=== PATIENT | female | born 1935 | race Caucasian/White ===

== ENCOUNTER 2016-12-21 13:43 | Inpatient (IN) ==
--- NOTE | 2016-12-21 14:31 | Emergency Department Note ---
Disposition Clinical Impression: Renal cell carcinoma of right kidney, Ureteral obstruction, right, Hematuria Anemia Qualifiers: Anemia type: iron deficiency Iron deficiency anemia type: chronic blood loss Qualified Code(s): D50.0 - Iron deficiency anemia secondary to blood loss ( chronic) Disposition: Admitted As Inpatient Condition: Fair Time of Disposition: 15:32 General Adult HPI - General Chief complaint: ED Recheck/Abnormal Lab/Rx Stated complaint: Admission Dr.Steven Miguel Time Seen by Provider: 12/21/16 14:24 Source: patient Limitations: no limitations - History of Present Illness HPI Narrative: Patient is an 81-year-old female with past medical history significant for diabetes, HTN, history of breast cancer who presents with abdominal pain and hematuria with passage of clot in the urine. He should was recently seen by Dr. Miguel, urologist, he sent the patient to the ED for further evaluation. Patient recently had a CT scan performed on 12/19/2016 which demonstrated a large mass arising from the upper pole right kidney measuring 7.8 meters in diameter. Blood is identified in the renal collecting system and ureter on the right, with distention of the right ureter. Patient states that she had inability to urinate 2 days ago, then passed a large finger-sized clot, followed by a large "gush" of urine. Patient states that she is had chronic problems urinating in the past few days. She states that she has "dribbling" with increased frequency of urination. When she tries to urinate she sometimes cannot get anything out. Patient does complain of right lower quadrant abdominal pain. Pain is a 0 out of 10 at rest. However, right lower quadrant is extremely tender during any type of movement. Patient does admit to fever of 101, night sweats, 20 pound weight loss since June, decreased appetite. She also admits nausea and nonbloody vomiting as well as constipation. She denies chest pain, shortness of breath, diarrhea, hematochezia, melena Pain Scale: 0 - Related Data Home Medications Medication Instructions Recorded Confirmed Atenolol [Tenormin] 50 mg PO DAILY 12/21/16 12/21/16 Cetirizine HCl [Cetirizine HCl] 10 mg PO DAILY 12/21/16 12/21/16 Fenofibrate Nanocrystallized 160 mg PO DAILY 12/21/16 12/21/16 [Triglide] Fluticasone Propionate Nasal 50 mcg NS DAILY 12/21/16 12/21/16 [Flonase] Losartan/Hydrochlorothiazide 1 each PO DAILY 12/21/16 12/21/16 [Hyzaar 100-25 Tablet] Potassium Chloride [K-Tab ER] 20 meq PO DAILY 12/21/16 12/21/16 Rosuvastatin Calcium [Rosuvastatin 20 mg PO HS 12/21/16 12/21/16 Calcium] Allergies Allergy/AdvReac Type Severity Reaction Status Date / Time hydrochlorothiazide Allergy See Verified 12/21/16 13:47 [From Maxzide] Comments Triamterene [From Maxzide] Allergy See Verified 12/21/16 13:47 Comments All systems ED: reviewed and negative except as stated. Constitutional: Reports: as per HPI Eyes: Reports: as per HPI ENT ED: Reports: as per HPI Cardiovascular: Reports: as per HPI Respiratory: Reports: as per HPI Gastrointestinal: Reports: as per HPI Genitourinary: Reports: as per HPI Musculoskeletal: Reports: as per HPI Integumentary: Reports: as per HPI Neurological: Reports: as per HPI Psychiatric: Reports: as per HPI Endocrine: Reports: as per HPI Hematological/Lymphatic: Reports: as per HPI Allergic/Immunologic: Reports: as per HPI Past Medical History - Past Medical History Medical history: Reports: cancer, diabetes, hypertension - Social History Smoking Status: Never smoker Alcohol use: Reports: none Drug use: Reports: none Physical Exam - General Limitations: no limitations General appearance: alert, in no apparent distress - Head Head exam: atraumatic, normocephalic, normal inspection - Eye Eye exam: Present: normal appearance, PERRL, EOMI. Absent: scleral icterus, conjunctival injection - ENT ENT exam: normal exam - Neck Neck exam: Present: normal inspection, full ROM, trachea midline, other (A carotid bruit) - Chest Chest inspection: Present: normal inspection, symmetric chest wall rise. Absent : tenderness - Respiratory Respiratory exam: Present: normal lung sounds bilaterally. Absent: respiratory distress, wheezes - Cardiovascular Cardiovascular exam: Present: regular rate, normal rhythm, +S1, +S2. Absent: systolic murmur, diastolic murmur - Abdominal Exam Abdominal exam: Present: soft, tenderness, normal bowel sounds. Absent: distention, guarding, rebound, rigidity Abdominal tenderness: Present: RLQ, severe - Extremities Exam Extremities exam: Present: normal inspection, full ROM, pedal edema (Trace bilateral) - Back Exam Back exam: Present: normal inspection, full ROM - Neurological Exam Neurological exam: Present: alert, oriented X3 - Psychiatric Psychiatric exam: Present: normal affect, normal mood - Skin Skin exam: Present: warm, dry, intact Course - Reevaluation(s) Reevaluation #1: Have contacted the hospitalist, Saima Diaz CNP who except to the patient for admission. Time: 15:30 Vital Signs Temperature 98.1 F 12/21/16 13:47 Pulse Rate 75 12/21/16 13:47 Respiratory Rate 15 12/21/16 13:47 Blood Pressure 112/62 12/21/16 13:47 O2 Sat by Pulse Oximetry 96 12/21/16 13:47 Temperature 98.1 F 12/21/16 21:40 Pulse Rate 73 12/21/16 21:40 Respiratory Rate 24 12/21/16 21:40 Blood Pressure 133/64 12/21/16 21:40 O2 Sat by Pulse Oximetry 93 12/21/16 21:40 Oxygen Delivery Oxygen Delivery Room Air Medical Decision Making - MDM Narrative Medical decision making narrative: Patient presents upon recommendation by Dr. Miguel, urologist. Patient has right renal mass with thrombus to the right renal collecting system and right ureter. Patient has distention of the right ureter evidence on CT scan from [facility] on 12/19/2016. I will obtain CBC, CMP, which are pending at this time. I will proceed with admission for this patient. - Medical Records Medical records reviewed: Yes I reviewed the patient's medical records. - Lab Data Lab results reviewed: Yes I reviewed the patient's lab results. Result diagrams: 12/21/16 15:55 12/21/16 15:55 Lab Results 12/21/16 12/21/16 12/21/16 Range/Units 15:55 15:55 15:55 WBC 6.4 (4.3-11.1) K/mcL RBC 3.41 L (3.82-4.97) M/mcL Hgb 7.8 L (11.5-15.4) g/dL Hct 26.5 L (35.3-44.9) % MCV 77.7 L (83.0-100.0) fL MCH 22.9 L (28.0-33.3) pg MCHC 29.4 L (31.6-35.5) g/dL RDW 15.7 H (11.5-14.5) % Plt Count 558 H (140-400) K/mcL MPV 8.4 L (9.4-12.4) fL Immature Gran % 0.5 (0-4) % Seg Neutrophils % 75.0 % Lymphocytes % 14.8 % Monocytes % 7.8 % Eosinophils % 1.6 % Basophils % 0.3 % Neutrophils # 4.8 (1.6-8.9) K/mcL Lymphocytes # 0.9 (0.6-4.6) K/mcL Monocytes # 0.5 (0.0-1.3) K/mcL Eosinophils # 0.1 (0.0-0.6) K/mcL Basophils # 0.0 (0.0-0.2) K/mcL Sodium 134 L (136-145) mEq/L Potassium 4.0 (3.5-4.5) mEq/L Chloride 97 L (98-109) mEq/L Carbon Dioxide 27 (19-29) mEq/L BUN 23 H (7-20) mg/dL Creatinine 1.33 H (0.57-1.11) mg/dL Est GFR ( Amer) 47 L (> 60) Est GFR (Non-Af Amer) 38 L (> 60) BUN/Creatinine Ratio 17 (6-26) Glucose 86 (70-99) mg/dL Est Mean Plasma Glucose 114 mg/dl Hemoglobin A1c 5.6 ( - 5.6) % Calculated Osmolality 281 (280-300) Calcium 10.8 (8.6-10.8) mg/dL Total Bilirubin 0.3 (0.2-1.2) mg/dL AST 50 H (5-34) Units/L ALT 39 (0-55) Units/L Alkaline Phosphatase 54 (38-126) Units/L Serum Total Protein 6.4 (6.0-8.3) g/dL Albumin 2.2 L (3.5-5.0) g/dL Globulin 4.2 H (2.4-3.5) g/dL Albumin/Globulin Ratio 0.5 L (1.1-2.2) - Radiology Data Radiology results reviewed: Yes I reviewed the patient's radiology results. I have scanned CT abdomen 12/17/16 from [facility] into the patient's medical record.
[2016-12-21 16:04] LABS: Basophils % 0.3 %; Eosinophils # 0.1 K/mcL (0.0-0.6); Eosinophils % 1.6 %; Hematocrit 26.5 % (35.3-44.9); Immature Granulocytes % 0.5 % (0-4); Lymphocytes # 0.9 K/mcL (0.6-4.6); Lymphocytes % 14.8 %; Mean Corpuscular HGB Conc 29.4 g/dL (31.6-35.5); Mean Corpuscular Hemoglobin 22.9 pg (28.0-33.3); Mean Corpuscular Volume 77.7 fL (83.0-100.0); Mean Platelet Volume 8.4 fL (9.4-12.4); Monocytes # 0.5 K/mcL (0.0-1.3); Monocytes % 7.8 %; Neutrophils # 4.8 K/mcL (1.6-8.9); Platelet Count 558 K/mcL (140-400); Red Blood Count 3.41 M/mcL (3.82-4.97); Red Cell Distribution Width 15.7 % (11.5-14.5)
[2016-12-21 16:19] LABS: Albumin 2.2 g/dL (3.5-5.0); Albumin/Globulin Ratio 0.5 (1.1-2.2); Bilirubin,Total 0.3 mg/dL (0.2-1.2); Calcium 10.8 mg/dL (8.6-10.8); Globulin 4.2 g/dL (2.4-3.5); Total Protein 6.4 g/dL (6.0-8.3)
[2016-12-21 16:23] LABS: Hemoglobin 7.8 g/dL (11.5-15.4)
--- NOTE | 2016-12-21 16:28 | Emergency Department Note ---
START Narrative - START START: I examined this patient and my medical decision-making was reviewed with the GLOBAL CTO/PA/Advanced Practice Nurse/Resident Physician. I agree with the documented findings, disposition and treatment plan as described except to the extent set forth below. The patient does have a history of recent diagnosis of renal cancer with what sounds like metastases and lymph node involvement and was sent here by the urologist for admission. She is bright and alert and in no distress in the room. I did speak with the patient and the family. Patient will have further evaluation the hospital. [id number]
[2016-12-21] MEDS ORDERED: Acetaminophen 325 MG TABLET PO PRN (16:46)
[2016-12-21] MEDS ORDERED: Naloxone 0.4 MG/ML INJ IVP PRN (16:46)
[2016-12-21] MEDS ORDERED: Ondansetron ODT 4 MG TAB.RAPDIS SL PRN (16:46)
--- NOTE | 2016-12-21 18:52 | Event Note ---
Date of Encounter: 12/21/16 Time of Encounter: 18:50 81/F Was in [facility] on Sunday. She underwent CT scan of her abdomen where they found renal mass. Patient was seen by urology this morning. Plan: Noted that patient's hemoglobin is 7.2. We will transfuse 2 units PRBC. Urology consult Labs in the morning I examined this patient independently and agree with the findings I examined this patient and my medical decision-making was reviewed with the GLASS CHECKER/PA/Advanced Practice Nurse/Resident Physician. I agree with the documented findings, disposition and treatment plan as described except to the extent set forth below.
--- NOTE | 2016-12-21 19:13 | Urology - Consult Note ---
Date of Encounter: 12/21/16 Time of Encounter: 19:11 - Assessment and Plan (1) Hematuria Current Visit: Yes Status: Acute Assessment and plan: 81-year-old woman with a history of hematuria from a right renal cell carcinoma. We discussed management. Currently she is having intermittent hematuria. She reports that the last time she voided her urine was clear. If she begins to develop pronounced bleeding, we could consider angioembolization of the right kidney. I discussed the risks and benefits associated with that. Post-embolization symptoms typically consist of fevers, chills, and severe flank pain. I recommend proceeding with embolization if there is significant and persistent bleeding. We also discussed a palliative nephrectomy, but that is typically performed in patients with very good performance status. At this time she has had a significant weight loss. I think it may be reasonable to proceed with a more conservative approach. I recommend a referral to medical oncology. (2) Renal cell carcinoma of right kidney Current Visit: Yes Status: Acute Assessment and plan: I recommend a medical oncology consultation and discussion for possible chemotherapy. (3) Ureteral obstruction, right Current Visit: Yes Status: Acute Assessment and plan: There is concern that she has some blood within her renal pelvis and possible obstruction secondary to bleeding. Consideration for a right ureteral stent was given. Placement of stent would not necessarily stop her bleeding, but would minimize flank pain associated with obstruction. She says she is having minimal right flank pain. She is having some right lower quadrant pain. For now, we will see how she does. I will hold off on placement of a stent unless she begins to develop pain which is not adequately controlled. Urology CN:HPI Consult date: 12/21/16 Reason for consult Urology: Gross Hematuria Requesting physician: Saima Diaz History of present illness: 81-year-old woman presents with concern for gross hematuria. She has noted intermittent bleeding for a couple days. She was seen at the [place] emergency department. A CT scan showed concern for a right renal mass with concern for metastatic disease. There was blood clot within the collecting system. She was seen at the [facility] urology office in [place] by Dr. Miguel. He referred her to the emergency department and she was admitted. She is anemic. She currently feels that she is urinating well. She said the last time she voided her urine was clear. She reports some lower quadrant pain on the right side, but denies any flank pain. Past Med Surg Social Fam HX - Past Medical History Medical history: cancer, diabetes, hypertension Psychiatric history: no psych history - Past Surgical History Surgical History: appendectomy - Social History Smoking Status: Never smoker Smokeless Tobacco Status: No Alcohol use: none Drug use: none - Family History Father Age at : 93 Cause of : heart attack Hx Family Cardiac Disorders: Yes Hx Family Respiratory Disorders: No Hx Family Cancer: No Hx Family GI Disorders: No Hx Family Genitourinary Disorders: No Hx Family Endocrine Disorder: Yes Hx Family Musculoskeletal Disorders: No Hx Family Neuromuscular Disorders: Yes Hx Family Neurologic Disorders: No Hx Family HEENT Disorders: No Hx Family Autoimmune Disorders: No Hx Family Reproductive Disorders: No Hx Family Psychosocial Disorders: No Hx Family Medical Disorders: No Mother Living Status: Age at : 86 Cause of : CVA Medications and Allergies Atenolol [Tenormin] 50 mg PO DAILY 12/21/16 [History] Cetirizine HCl [Cetirizine HCl] 10 mg PO DAILY 12/21/16 [History] Fenofibrate Nanocrystallized [Triglide] 160 mg PO DAILY 12/21/16 [History] Fluticasone Propionate Nasal [Flonase] 50 mcg NS DAILY 12/21/16 [History] Losartan/Hydrochlorothiazide [Hyzaar 100-25 Tablet] 1 each PO DAILY 12/21/16 [ History] Potassium Chloride [K-Tab ER] 20 meq PO DAILY 12/21/16 [History] Rosuvastatin Calcium [Rosuvastatin Calcium] 20 mg PO HS 12/21/16 [History] Allergies hydrochlorothiazide [From Maxzide] Allergy (Verified 12/21/16 13:47) See Comments Unsure of reaction. Triamterene [From Maxzide] Allergy (Verified 12/21/16 13:47) See Comments Unsure of reaction. Review of Systems - Constitutional no chills, no fever(s) - EENT Nose, mouth and throat: no dizziness - Cardiovascular no chest pain - Respiratory no dyspnea - Gastrointestinal no nausea, no vomiting - Genitourinary Genitourinary: hematuria, no flank pain - Musculoskeletal no back pain - Integumentary no erythema, no rash - Neurological no weakness - Psychiatric no suicidal ideation - Hematologic/Lymphatic no easy bleeding - Allergic/Immunologic no wheezing Exam Initial Vital Signs Temp Pulse Resp BP Pulse Ox 98.1 F 75 15 112/62 96 12/21/16 13:47 12/21/16 13:47 12/21/16 13:47 12/21/16 13:47 12/21/16 13:47 - General physical appearance Present: well developed, well nourished, no distress - Eyes Absent: icteric - ENT Present: normal nares - Neck Present: trachea midline - Respiratory Present: normal respiratory effort - Cardiovascular Cardiovascular exam IM: RRR - Abdomen Abdomen: Present: soft Urology Results - Labs 12/21/16 15:55 12/21/16 15:55 Abnormal lab results RBC 3.41 M/mcL (3.82-4.97) L 12/21/16 15:55 Hgb 7.8 g/dL (11.5-15.4) L 12/21/16 15:55 Hct 26.5 % (35.3-44.9) L 12/21/16 15:55 MCV 77.7 fL (83.0-100.0) L 12/21/16 15:55 MCH 22.9 pg (28.0-33.3) L 12/21/16 15:55 MCHC 29.4 g/dL (31.6-35.5) L 12/21/16 15:55 RDW 15.7 % (11.5-14.5) H 12/21/16 15:55 Plt Count 558 K/mcL (140-400) H 12/21/16 15:55 MPV 8.4 fL (9.4-12.4) L 12/21/16 15:55 Sodium 134 mEq/L (136-145) L 12/21/16 15:55 Chloride 97 mEq/L (98-109) L 12/21/16 15:55 BUN 23 mg/dL (7-20) H 12/21/16 15:55 Creatinine 1.33 mg/dL (0.57-1.11) H 12/21/16 15:55 Est GFR ( Amer) 47 (> 60) L 12/21/16 15:55 Est GFR (Non-Af Amer) 38 (> 60) L 12/21/16 15:55 AST 50 Units/L (5-34) H 12/21/16 15:55 Albumin 2.2 g/dL (3.5-5.0) L 12/21/16 15:55 Globulin 4.2 g/dL (2.4-3.5) H 12/21/16 15:55 Albumin/Globulin Ratio 0.5 (1.1-2.2) L 12/21/16 15:55 All other labs normal. - Imaging CT scan - abdomen: report reviewed CT scan - pelvis: report reviewed Consult Discharge Plan - Plan Referrals: Nick Olmos MD [Primary Care Provider] -
--- NOTE | 2016-12-21 19:17 | Internal Med History&Physical ---
<Saima Diaz M - Last Filed: 12/21/16 19:50> Date of Encounter: 12/21/16 Time of Encounter: 18:58 Assessment and Plan (1) Hematuria Status: Acute Patient reports large blood clot passed with urine on Sunday, followed by blood tinged urine. Patient reporting she is passing urine easily now and it is yellow. CT from [place] on Sunday shows blood clots in right renal collecting system and right ureter. UA ordered, not yet resulted. IV fluids with 0.9NS at 75mL/hr Urology consulted, spoke with Dr. Lorenzo, who will see patient. (2) Renal cell carcinoma of right kidney Status: Acute Patient with cough, weight loss, poor appetite over last 6 months, now with Abdominal pain and hematuria. CXR ordered by PCP reportedly showed pulmonary lesions consistent with malignancy. CT from [place] on Sunday showed large mas arising from the upper pole of the right kidney measuring up to 7.8cm, which appears to be partially hemorrhagic. There are blood products in the renal collecting system and ureter on the right. Enlarged retrocaval lymph node at the level of the kidney consistent with metastatic disease. Multiple noncalcified nodules in the lung bases possibly related to metastatic disease vs. noncalcified granuloma. Consulted Urology, Dr. Lorenzo to see patient. Plan for MRI to further characterize disease. Plan to consult oncology and/or palliative care for discussion of treatment options and goals of care. (3) Anemia Status: Acute Hgb 7.8/Hct 26.5, with no baseline available for comparison. Patient with hematuria and CBC consistent with chronic blood loss anemia. type and cross Transfuse 2u packed RBCs check H&H Q 6hrs. Qualifiers: Anemia type: iron deficiency Iron deficiency anemia type: chronic blood loss Qualified Code(s): D50.0 - Iron deficiency anemia secondary to blood loss (chronic) (4) Ureteral obstruction, right Status: Acute Secondary to blood products in the right ureter, seen on CT. Urology consulted. (5) Hypertension Status: Acute Hold Losartan/HCTZ due to elevated creatinine and concern for JONATHAN without known creatinine baseline. Continue home dose of atenolol. Qualifiers: Hypertension type: essential hypertension Qualified Code(s): I10 - Essential (primary) hypertension (6) Type 2 diabetes mellitus Status: Acute Patient reports she has "borderline diabetes" and does not take any medications. Blood sugar was 86. Will check Hgb A1c and determine if accuchecks are necessary. Qualifiers: Diabetes mellitus complication status: without complication Diabetes mellitus half-way insulin use: without termite exterminator use Qualified Code(s): E11.9 - Type 2 diabetes mellitus without complications (7) DVT prophylaxis Status: Acute Up to chair BID Sequential compression devices pharmacologic prophylaxis contraindicated in patient with active bleeding. Internal Medicine - H&P: HPI Chief complaint: hematuria Admitted From: Emergency Dept Plans for Post Hospital Care: Home History of present illness: Ms. Aparicio is a 81 year old female with hypertension, diabetes, history of breast cancer status post radiation 14 years ago presents to the emergency department today on the instruction of her urologist Dr. Miguel. Patient reports that she has had a chronic cough since the wintertime her primary care physician ordered a chest x-ray recently which showed lung nodules consistent with metastasis. On Sunday evening she passed a large blood clot when urinating and went to the [facility] emergency department. She had a CT of her abdomen which showed a large mass in the right kidney appearing to be partially hemorrhagic, with blood products in the renal collecting system and right ureter. Patient had follow-up appointment with Dr. Miguel in urology today who instructed her to go to the emergency room for admission. Patient reports she has had a poor appetite, lost 20 pounds in weight over the last 6 months, had occasional nausea, has right lower quadrant pain, abdominal distention. She denies any lightheadedness, dizziness, chest pain, palpitations, shortness of breath, fever, chills, sweats. Evaluation in the emergency department revealed anemia with hemoglobin of 7.8, with no available baseline, white blood cell count was normal at 6.4, platelet count was elevated at 558. Creatinine was elevated 1.33, again without any baseline for comparison. On exam, patient alert and oriented, in no acute distress. Heart has regular rate and rhythm, lungs are clear bilaterally to auscultation. Abdomen is distended and soft, with tenderness the right lower quadrant. Past Med Surg Social Fam HX - Past Medical History Medical history: cancer (breast cancer s/p radiation 2002), diabetes, hypertension Psychiatric history: no psych history - Past Surgical History Surgical History: appendectomy - Social History Smoking Status: Never smoker Smokeless Tobacco Status: No Alcohol use: none Drug use: none - Family History Father Age at : 93 Cause of : heart attack Hx Family Cardiac Disorders: Yes Hx Family Respiratory Disorders: No Hx Family Cancer: No Hx Family GI Disorders: No Hx Family Genitourinary Disorders: No Hx Family Endocrine Disorder: Yes Hx Family Musculoskeletal Disorders: No Hx Family Neuromuscular Disorders: Yes Hx Family Neurologic Disorders: No Hx Family HEENT Disorders: No Hx Family Autoimmune Disorders: No Hx Family Reproductive Disorders: No Hx Family Psychosocial Disorders: No Hx Family Medical Disorders: No Mother Living Status: Age at : 86 Cause of : CVA Internal Medicine - H&P: Meds Atenolol [Tenormin] 50 mg PO DAILY 12/21/16 [History] Cetirizine HCl 10 mg PO DAILY 12/21/16 [History] Fenofibrate Nanocrystallized [Triglide] 160 mg PO DAILY 12/21/16 [History] Fluticasone Propionate Nasal [Flonase] 50 mcg NS DAILY 12/21/16 [History] Losartan/Hydrochlorothiazide [Hyzaar 100-25 Tablet] 1 each PO DAILY 12/21/16 [ History] Potassium Chloride [K-Tab ER] 20 meq PO DAILY 12/21/16 [History] Rosuvastatin Calcium 20 mg PO HS 12/21/16 [History] Allergies hydrochlorothiazide [From Maxzide] Allergy (Verified 12/21/16 13:47) See Comments Unsure of reaction. Triamterene [From Maxzide] Allergy (Verified 12/21/16 13:47) See Comments Unsure of reaction. All Systems PM: A 10-system review of systems was performed and is negative for pertinent findings except as documented above in the HPI. - Constitutional Constitutional: anorexia, weight loss, no chills, no fever(s), no night sweats - EENT Eyes: no change in vision, no discharge, no pain, no photophobia Ears: no ear discharge, no ear pain, no tinnitus Nose, mouth and throat: no dysphagia, no nasal discharge, no neck pain, no sore throat - Cardiovascular Cardiovascular ROS IM: no chest pain, no diaphoresis, no dyspnea, no lightheadedness, no palpitations, no syncope - Respiratory Respiratory: no cough, no dyspnea, no wheezing, no excessive phlegm production - Gastrointestinal Gastrointestinal: abdominal pain, bloating, nausea, no diarrhea, no hematemesis , no hematochezia, no melena, no vomiting - Genitourinary Genitourinary: dysuria, hematuria, no change in urinary stream, no flank pain - Musculoskeletal Musculoskeletal ROS IM: no numbness, no tingling - Integumentary Integumentary IM: no rash, no unusual bruising - Neurological Neurological ROS: no confusion, no convulsions, no focal weakness, no numbness, no tingling, no tremor(s) - Hematologic/Lymphatic Hematologic/Lymphatic: no easy bruising - Constitutional Vitals: Temp Pulse Resp BP Pulse Ox 98.1 F 74 16 124/60 94 12/21/16 13:47 12/21/16 14:28 12/21/16 17:12 12/21/16 17:12 12/21/16 14:28 General appearance: Present: A&O X 3, pleasant, no acute distress - Head Head exam: Present: atraumatic, normocephalic - Eye Eye exam: Present: PERRL, conjuntiva pink, sclera anicteric Pupils: Present: PERRL - Neck Neck exam general surgery: Present: supple, trachea midline. Absent: lymphadenopathy - Respiratory Respiratory exam: Present: CTAB. Absent: accessory muscle use, rales, rhonchi, wheezes - Cardiovascular Cardiovascular exam: Present: RRR, +S1, +S2. Absent: diastolic murmur, gallop, rubs, systolic murmur - GI/Abdominal GI/Abdominal exam: Present: distended, normal bowel sounds, soft, tenderness, no peritoneal signs - Extremities Exam Extremities exam: Present: warm, radial pulses palpable and symetrical. Absent : calf tenderness, cyanotic, pedal edema - Neurological Exam Neurological exam: Present: CN II-XII intact, oriented X3, no focal deficits. Absent: facial droop, speech deficit - Skin Skin exam: Present: dry, intact Internal Med - H&P Results - Labs CBC & Chem 7: 12/21/16 15:55 12/21/16 15:55 Labs: All Lab Results (24 Hours) 12/21/16 12/21/16 Range/Units 15:55 15:55 WBC 6.4 (4.3-11.1) K/mcL RBC 3.41 L (3.82-4.97) M/mcL Hgb 7.8 L (11.5-15.4) g/dL Hct 26.5 L (35.3-44.9) % MCV 77.7 L (83.0-100.0) fL MCH 22.9 L (28.0-33.3) pg MCHC 29.4 L (31.6-35.5) g/dL RDW 15.7 H (11.5-14.5) % Plt Count 558 H (140-400) K/mcL MPV 8.4 L (9.4-12.4) fL Immature Gran % 0.5 (0-4) % Seg Neutrophils % 75.0 % Lymphocytes % 14.8 % Monocytes % 7.8 % Eosinophils % 1.6 % Basophils % 0.3 % Neutrophils # 4.8 (1.6-8.9) K/mcL Lymphocytes # 0.9 (0.6-4.6) K/mcL Monocytes # 0.5 (0.0-1.3) K/mcL Eosinophils # 0.1 (0.0-0.6) K/mcL Basophils # 0.0 (0.0-0.2) K/mcL Sodium 134 L (136-145) mEq/L Potassium 4.0 (3.5-4.5) mEq/L Chloride 97 L (98-109) mEq/L Carbon Dioxide 27 (19-29) mEq/L BUN 23 H (7-20) mg/dL Creatinine 1.33 H (0.57-1.11) mg/dL Est GFR ( Amer) 47 L (> 60) Est GFR (Non-Af Amer) 38 L (> 60) BUN/Creatinine Ratio 17 (6-26) Glucose 86 (70-99) mg/dL Calculated Osmolality 281 (280-300) Calcium 10.8 (8.6-10.8) mg/dL Total Bilirubin 0.3 (0.2-1.2) mg/dL AST 50 H (5-34) Units/L ALT 39 (0-55) Units/L Alkaline Phosphatase 54 (38-126) Units/L Serum Total Protein 6.4 (6.0-8.3) g/dL Albumin 2.2 L (3.5-5.0) g/dL Globulin 4.2 H (2.4-3.5) g/dL Albumin/Globulin Ratio 0.5 L (1.1-2.2) <Quinn Verdin P - Last Filed: 12/25/16 17:46> Date of Encounter: 12/25/16 Internal Medicine - H&P: HPI History of present illness: Ms. Aparicio is a 81 year old female All Systems PM: A 10-system review of systems was performed and is negative for pertinent findings except as documented above in the HPI. - Constitutional Vitals: Temp Pulse Resp BP Pulse Ox 97.3 F L 67 18 144/83 96 12/23/16 11:30 12/23/16 11:30 12/23/16 11:30 12/23/16 11:30 12/23/16 11:30 Internal Med - H&P Results - Labs CBC & Chem 7: 12/23/16 08:36 12/23/16 08:36 - Impressions ITS Impressions Abdomen MRI 12/22/16 09:27 IMPRESSION: 1. A 7.7 x 7.6 x 11.2 cm right renal neoplasm with extension into the renal sinus and pelvis and abuts the liver as well as the diaphragm. The right renal vein is not well-visualized but likely involved. No definite IVC thrombus is identified; however, the IVC is markedly attenuated due to mass effect. 2. Metastatic retroperitoneal adenopathy. D/ / 12/22/2016 14:48:53 Alisson Edmonds MD / roscoe Interpreting Provider: Alisson Edmonds MD Chest CT 12/22/16 12:21 IMPRESSION: 1. Multiple subcentimeter noncalcified bilateral pulmonary nodules suspicious for metastatic disease. 2. Trace bilateral pleural effusions. 3. Partially visualized is a right upper pole renal mass. Please refer to dedicated MRI of the abdomen for full details. D/ / 12/22/2016 13:47:04 Alisson Edmonds MD / roscoe Interpreting Provider: Alisson Edmonds MD - Attending Attestation I examined this patient and my medical decision-making was reviewed with the ASSOCIATE ENGINEER/PA/Advanced Practice Nurse/Resident Physician. I agree with the documented findings, disposition and treatment plan as described except to the extent set forth below.
[2016-12-21 20:01] LABS: Hemoglobin A1C 5.6 %
[2016-12-21] MEDS: 0.9 % Sodium Chloride 1,000 ML IVC SCH (20:29)
[2016-12-21] MEDS ORDERED: 0.9 % Sodium Chloride Mini Bag 100 ML ONE (21:15)
[2016-12-21 23:24] LABS: Bilirubin,Urine Negative (Negative); Blood,Urine Large (Negative); Clarity,Urine Cloudy (Clear); Color,Urine Yellow (Yellow); Glucose,Urine (UA) Normal (Normal); Ketones,Urine Negative (Negative); Leukocyte Esterase,Urine Small (Negative); Nitrite,Urine Negative (Negative); PH,Urine 6.5 pH Units (5.0-8.0); Protein,Urine 30 mg/dL (Neg-Trace); Specific Gravity,Urine 1.008 (1.010-1.025); Urobilinogen,Urine Normal (Normal)
[2016-12-21 23:26] LABS: Bacteria,Urine None Seen per hpf (None-Few); Hyaline Casts,Urine None Seen per lpf (None-Few); Squamous Epithelial Cell,Urine Many per lpf (None-Few)
[2016-12-21 23:35] LABS: RBC,Urine 15-30 per hpf (0-3)
[2016-12-22] MEDS ORDERED: 0.9 % Sodium Chloride Mini Bag 100 ML ONE (00:05)
[2016-12-22 05:24] LABS: INR 1.4; Prothrombin Time 15.4 Seconds (9.4-12.1)
[2016-12-22 05:25] LABS: Basophils % 0.4 %; Eosinophils # 0.2 K/mcL (0.0-0.6); Eosinophils % 4.4 %; Hematocrit 33.4 % (35.3-44.9); Immature Granulocytes % 0.6 % (0-4); Lymphocytes # 0.8 K/mcL (0.6-4.6); Lymphocytes % 15.5 %; Mean Corpuscular HGB Conc 31.4 g/dL (31.6-35.5); Mean Corpuscular Hemoglobin 24.9 pg (28.0-33.3); Mean Corpuscular Volume 79.1 fL (83.0-100.0); Mean Platelet Volume 8.7 fL (9.4-12.4); Monocytes # 0.5 K/mcL (0.0-1.3); Neutrophils # 3.7 K/mcL (1.6-8.9); Platelet Count 471 K/mcL (140-400); Red Blood Count 4.22 M/mcL (3.82-4.97); Red Cell Distribution Width 15.5 % (11.5-14.5); Segmented Neutrophils % 70.1 %
[2016-12-22 05:39] LABS: Calcium 10.1 mg/dL (8.6-10.8); Potassium 3.9 mEq/L (3.5-4.5)
[2016-12-22 05:42] LABS: Hemoglobin 10.5 g/dL (11.5-15.4)
[2016-12-22] MEDS: 0.9 % Sodium Chloride 1,000 ML IVC SCH ×2 (06:33→19:11)
--- NOTE | 2016-12-22 08:49 | Urology Progress Note ---
Date of Encounter: 12/22/16 Time of Encounter: 08:47 - Assessment and Plan (1) Hematuria Current Visit: Yes Status: Acute Assessment and plan: Hematuria has been somewhat mild. I think it is reasonable to observe for now. (2) Renal cell carcinoma of right kidney Current Visit: Yes Status: Acute Assessment and plan: Consider medical oncology consult. (3) Ureteral obstruction, right Current Visit: Yes Status: Acute Assessment and plan: Consider MRI of the kidneys today. Will hold off on stent placement unless pain worsens. Progress Note Narrative: 81 year old woman with a right renal mass and hematuria. Bleeding has been minimal overnight. She received two units of blood overnight. Objective Initial Vital Signs Temp Pulse Resp BP Pulse Ox 98.1 F 75 15 112/62 96 12/21/16 13:47 12/21/16 13:47 12/21/16 13:47 12/21/16 13:47 12/21/16 13:47 - General physical appearance Present: well developed, well nourished, no distress - Respiratory Present: normal respiratory effort - Abdomen Present: soft - Labs 12/22/16 05:08 12/22/16 05:08 Diabetes panel 12/22/16 Range/Units 05:08 Sodium 138 (136-145) mEq/L Potassium 3.9 (3.5-4.5) mEq/L Chloride 101 (98-109) mEq/L Carbon Dioxide 28 (19-29) mEq/L BUN 23 H (7-20) mg/dL Creatinine 1.27 H (0.57-1.11) mg/dL Glucose 96 (70-99) mg/dL Calcium 10.1 (8.6-10.8) mg/dL Calcium panel 12/22/16 Range/Units 05:08 Calcium 10.1 (8.6-10.8) mg/dL Pituitary panel 12/22/16 Range/Units 05:08 Sodium 138 (136-145) mEq/L Potassium 3.9 (3.5-4.5) mEq/L Chloride 101 (98-109) mEq/L Carbon Dioxide 28 (19-29) mEq/L BUN 23 H (7-20) mg/dL Creatinine 1.27 H (0.57-1.11) mg/dL Glucose 96 (70-99) mg/dL Calcium 10.1 (8.6-10.8) mg/dL Adrenal panel 12/22/16 Range/Units 05:08 Sodium 138 (136-145) mEq/L Potassium 3.9 (3.5-4.5) mEq/L Chloride 101 (98-109) mEq/L Carbon Dioxide 28 (19-29) mEq/L BUN 23 H (7-20) mg/dL Creatinine 1.27 H (0.57-1.11) mg/dL Glucose 96 (70-99) mg/dL Calcium 10.1 (8.6-10.8) mg/dL Consult Discharge Plan - Plan Referrals: Nick Olmos MD [Primary Care Provider] -
[2016-12-22] MEDS ORDERED: FENOFIBRATE NANOCRYSTALLIZED 160 MG PO SCH (09:00)
[2016-12-22] MEDS ORDERED: Fluticasone Propionate Nasal 50 MCG/SPRAY BOTTLE NS SCH (09:00)
[2016-12-22] MEDS: Loratadine 10 MG TABLET PO SCH (09:11)
--- NOTE | 2016-12-22 14:27 | Internal Med Progress Note ---
Date of Encounter: 12/22/16 Time of Encounter: 14:25 - Assessment and plan (1) Renal cell carcinoma of right kidney Current Visit: Yes Status: Acute Assessment and plan: recently diagnosed renal cell carcinoma of right kidney, CXR with lung nodules concerning for metastases. Will consult oncology, CT chest without contrast has been ordered. We will follow oncology recommendations. (2) Ureteral obstruction, right Current Visit: Yes Status: Acute Assessment and plan: Being followed by urology, MRI has been ordered, plan to hold off on stent placement unless pain worsens as per urology. Will follow recommendations (3) Anemia Current Visit: Yes Status: Acute Assessment and plan: Secondary to hematuria and underlying renal cell carcinoma. Status post 2 units of blood transfusion yesterday. Denies any hematuria this morning, hemoglobin better to 10.5 this morning. Monitor CBC transfusion as needed. Qualifiers: Anemia type: iron deficiency Iron deficiency anemia type: chronic blood loss Qualified Code(s): D50.0 - Iron deficiency anemia secondary to blood loss (chronic) (4) Hematuria Current Visit: Yes Status: Acute Assessment and plan: Secondary to renal cell carcinoma. No more hematuria this morning, monitor CBC. (5) Hypertension Current Visit: Yes Status: Chronic Qualifiers: Hypertension type: essential hypertension Qualified Code(s): I10 - Essential (primary) hypertension (6) Type 2 diabetes mellitus Current Visit: Yes Status: Chronic Qualifiers: Diabetes mellitus complication status: without complication Diabetes mellitus mcc insulin use: without mcc use Qualified Code(s): E11.9 - Type 2 diabetes mellitus without complications - Subjective Interval history: Patient seen at the bedside, denies any further hematuria, or bleeding from any other sites. Denies any abdominal pain or back pain, no nausea or vomiting. Recently diagnosed with renal cell carcinoma, urology following, oncology has been consulted. - Constitutional Vitals: Temp Pulse Resp BP Pulse Ox 98.2 F 68 19 151/77 95 12/22/16 07:11 12/22/16 07:11 12/22/16 07:11 12/22/16 07:11 12/22/16 07:11 General appearance: Present: A&O X 3, pleasant, no acute distress Exam: - Head Head exam: Present: atraumatic, normocephalic - Eye Eye exam: Present: PERRL, conjuntiva pink, sclera anicteric Pupils: Present: PERRL - Neck Neck exam general surgery: Present: supple, trachea midline. Absent: lymphadenopathy - Respiratory Respiratory exam: Present: CTAB. Absent: accessory muscle use, rales, rhonchi, wheezes - Cardiovascular Cardiovascular exam: Present: RRR, +S1, +S2. Absent: diastolic murmur, gallop, rubs, systolic murmur - GI/Abdominal GI/Abdominal exam: Present:mildly distended, normal bowel sounds, soft, no tenderness, no peritoneal signs - Extremities Exam Extremities exam: Present: warm, radial pulses palpable and symetrical. Absent : calf tenderness, cyanotic, pedal edema - Neurological Exam Neurological exam: Present: CN II-XII intact, oriented X3, no focal deficits. Absent: facial droop, speech deficit - Skin Skin exam: Present: dry, intact Internal Medicine: Result - Labs CBC & Chem 7: 12/22/16 05:08 12/22/16 05:08 Labs: Short CBC 12/22/16 Range/Units 05:08 WBC 5.2 (4.3-11.1) K/mcL Hgb 10.5 L D (11.5-15.4) g/dL Hct 33.4 L (35.3-44.9) % Plt Count 471 H (140-400) K/mcL Neutrophils # 3.7 (1.6-8.9) K/mcL BMP 12/22/16 05:08 Sodium 138 Potassium 3.9 Chloride 101 Carbon Dioxide 28 BUN 23 H Creatinine 1.27 H Glucose 96 Calcium 10.1 Urine 12/21/16 Range/Units 23:20 Urine Color Yellow (Yellow) Urine Clarity Cloudy A (Clear) Urine pH 6.5 (5.0-8.0) pH Units Ur Specific [place] 1.008 L (1.010-1.025) Urine Protein 30 H (Neg-Trace) mg/dL Urine Glucose (UA) Normal (Normal) mg/dL - ABG Interpretation ABG results: PT/INR, D-dimer PT 15.4 Seconds (9.4-12.1) H 12/22/16 05:08 - Impressions Impressions Chest CT 12/22/16 12:21 IMPRESSION: 1. Multiple subcentimeter noncalcified bilateral pulmonary nodules suspicious for metastatic disease. 2. Trace bilateral pleural effusions. 3. Partially visualized is a right upper pole renal mass. Please refer to dedicated MRI of the abdomen for full details. D/ / 12/22/2016 13:47:04 Alisson Edmonds MD / roscoe Interpreting Provider: Alisson Edmonds MD Consult Discharge Plan - Plan Referrals: Nick Olmos MD [Primary Care Provider] -
--- NOTE | 2016-12-22 20:39 | Oncology Inp Consult Note ---
Date of Encounter: 12/22/16 Time of Encounter: 20:37 - Data of Consult Patient: new to practice Consult date: 12/22/16 Requesting Physician: Arielle White Primary Care Provider: Nick Monge - Consult Narrative Reason for consult: Suspected kidney cancer History of present illness: Ms. Aparicio is a 81 year old female patient of Dr. 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 She is new to oncology. She initially presented with progressive weight loss (25 pounds) and urinary voiding difficulty of about 6 months duration and ultimately presented to the emergency room at [facility] due to unexplained hematuria complaints. Abdomen CT 12/20/16 which showed an 8 cm right-sided renal mass with retroperitoneal lymphadenopathy and suspicious pulmonary lesions. She was evaluated by Dr. Miguel in the [place] office and after discussing options for management of her likely metastatic kidney cancer, she elected for hospitalization for further evaluation and management. Abdomen MRI 12/21/16 confirmed an 11 cm right renal mass with extension into the renal sinus and pelvis and abutting the liver as well as the diaphragm. There is concern about involvement of the right renal vein. No definite IVC thrombus identified but there is concern about marked attenuation due to mass- effect. Additional finding of metastatic retroperitoneal adenopathy. Chest CT shows multiple subcentimeter noncalcified bilateral, subcentimeter pulmonary nodules suspicious for metastatic disease. There is trace bilateral pleural effusion. On admission, patient was noted to be significantly anemic with hemoglobin of 7.5 and she has received 2 units of packed red cells for her anemia. She has also been evaluated by Dr. Lorenzo with urology and discuss possible stent placement due to concern about bleeding and obstruction from her kidney cancer as possible contributing factor to her prior flank pain. Patient is currently not having any flank pain and decided to hold off on stent placement at this time since it is not felt that it would not impact her bleeding symptoms at this time. Options discussed for management of her intermittent hematuria include angioembolization of the right kidney if bleeding becomes problematic. She is not considered an appropriate candidate for palliative nephrectomy due to suboptimal performance status and significant weight loss. Fortunately, she is voiding clear urine presently and no other evidence of ongoing bleeding at this time. Dr. Lorenzo has recommended consideration for systemic therapy and oncology is consulted for further discussion regarding management of her likely metastatic kidney cancer. Patient seen and examined at bedside. Chart reviewed for details of ongoing hospital team which is much appreciated. Family was present at bedside at time of evaluation including (Jordan) and their daughter will provide additional information regarding patient's clinical background. She is feeling well and is not having any new physical complaints at this time. Most recent CBC shows significant improvement in her hemoglobin following recent transfusion. Rest of past medical, surgical, family, social history detailed below and verified with patient today. Review of systems: 12 point review of systems performed with patient and positive findings noted in history of present illness. All other systems are negative: Physical exam: Vital Signs Temp 97.9 F 12/22/16 19:14 Pulse 71 12/22/16 19:14 Resp 15 12/22/16 19:14 BP 133/71 12/22/16 19:14 Pulse Ox 96 12/22/16 19:14 Intake & Output 12/22/16 12/22/16 12/23/16 00:59 12:59 00:59 Intake Total 559 / 559 1350 / 1350 911 / 911 Output Total 550 / 550 950 / 950 Balance 559 / 559 800 / 800 -39 / -39 Weight 69.445 kg 65.317 kg Intake: IV Fluids 89 / 89 0 / 0 911 / 911 0.9 % Sodium Chloride 1, 89 / 89 0 / 0 911 / 911 000 ML @ 75 mls/hr IVC . [id number] [facility] Rx#: [id number] Oral 120 / 120 1000 / 1000 0 / 0 Blood Product 350 / 350 350 / 350 Rbcs Leuko Poor As-1 0 / 0 350 / 350 Unit [id number] Rbcs Leuko Poor As-1 350 / 350 Unit [id number] Output: Urine 550 / 550 950 / 950 Other: Meal Dinner Percent of Meal Consumed 25% # Voids 1 1 Blood Glucose* 113 96 90 GENERAL: Alert and oriented, comfortable appearing. Mental Status: Affect appropriate for circumstances HEENT: Sclerae anicteric. No mucositis or thrush. No other oral or pharyngeal lesions or erythema. Skin: No rashes or petechiae. No evidence of skin malignancy Lymph nodes: No cervical, supraclavicular, axillary, or inguinal adenopathy. Lungs: Clear to auscultation bilaterally. Clear to percussion bilaterally. Cardiovascular: Regular rate and rhythm. No gallops, murmurs, or rubs. Abdomen: Soft, nontender; No organomegaly or masses palpable. Extremities: No edema. No calf swelling or tenderness. No joint deformity. Neurologic: Alert, normal gait; no focal weakness or sensory abnormalities. Results: Laboratory Last Values WBC 5.2 K/mcL (4.3-11.1) 12/22/16 05:08 RBC 4.22 M/mcL (3.82-4.97) 12/22/16 05:08 Hgb 10.5 g/dL (11.5-15.4) L D 12/22/16 05:08 Hct 33.4 % (35.3-44.9) L 12/22/16 05:08 MCV 79.1 fL (83.0-100.0) L 12/22/16 05:08 MCH 24.9 pg (28.0-33.3) L 12/22/16 05:08 MCHC 31.4 g/dL (31.6-35.5) L 12/22/16 05:08 RDW 15.5 % (11.5-14.5) H 12/22/16 05:08 Plt Count 471 K/mcL (140-400) H 12/22/16 05:08 MPV 8.7 fL (9.4-12.4) L 12/22/16 05:08 Immature Gran % 0.6 % (0-4) 12/22/16 05:08 Seg Neutrophils % 70.1 % 12/22/16 05:08 Lymphocytes % 15.5 % 12/22/16 05:08 Monocytes % 9.0 % 12/22/16 05:08 Eosinophils % 4.4 % 12/22/16 05:08 Basophils % 0.4 % 12/22/16 05:08 Neutrophils # 3.7 K/mcL (1.6-8.9) 12/22/16 05:08 Lymphocytes # 0.8 K/mcL (0.6-4.6) 12/22/16 05:08 Monocytes # 0.5 K/mcL (0.0-1.3) 12/22/16 05:08 Eosinophils # 0.2 K/mcL (0.0-0.6) 12/22/16 05:08 Basophils # 0.0 K/mcL (0.0-0.2) 12/22/16 05:08 PT 15.4 Seconds (9.4-12.1) H 12/22/16 05:08 INR 1.4 12/22/16 05:08 APTT 34.0 Seconds (26.0-36.0) 12/22/16 05:08 Sodium 138 mEq/L (136-145) 12/22/16 05:08 Potassium 3.9 mEq/L (3.5-4.5) 12/22/16 05:08 Chloride 101 mEq/L (98-109) 12/22/16 05:08 Carbon Dioxide 28 mEq/L (19-29) 12/22/16 05:08 BUN 23 mg/dL (7-20) H 12/22/16 05:08 Creatinine 1.27 mg/dL (0.57-1.11) H 12/22/16 05:08 Est GFR ( Amer) 49 (> 60) L 12/22/16 05:08 Est GFR (Non-Af Amer) 40 (> 60) L 12/22/16 05:08 BUN/Creatinine Ratio 18 (6-26) 12/22/16 05:08 Glucose 96 mg/dL (70-99) 12/22/16 05:08 POC Glucose 102 (58-89) H 12/22/16 16:57 Est Mean Plasma Glucose 114 mg/dl 12/21/16 15:55 Hemoglobin A1c 5.6 % (-5.6) 12/21/16 15:55 Calculated Osmolality 290 (280-300) 12/22/16 05:08 Calcium 10.1 mg/dL (8.6-10.8) 12/22/16 05:08 Total Bilirubin 0.3 mg/dL (0.2-1.2) 12/21/16 15:55 AST 50 Units/L (5-34) H 12/21/16 15:55 ALT 39 Units/L (0-55) 12/21/16 15:55 Alkaline Phosphatase 54 Units/L (38-126) 12/21/16 15:55 Serum Total Protein 6.4 g/dL (6.0-8.3) 12/21/16 15:55 Albumin 2.2 g/dL (3.5-5.0) L 12/21/16 15:55 Globulin 4.2 g/dL (2.4-3.5) H 12/21/16 15:55 Albumin/Globulin Ratio 0.5 (1.1-2.2) L 12/21/16 15:55 Urine Color Yellow (Yellow) 12/21/16 23:20 Urine Clarity Cloudy (Clear) A 12/21/16 23:20 Urine pH 6.5 pH Units (5.0-8.0) 12/21/16 23:20 Ur Specific Norman 1.008 (1.010-1.025) L 12/21/16 23:20 Urine Protein 30 mg/dL (Neg-Trace) H 12/21/16 23:20 Urine Glucose (UA) Normal mg/dL (Normal) 12/21/16 23:20 Urine Ketones Negative mg/dL (Negative) 12/21/16 23:20 Urine Blood Large (Negative) H 12/21/16 23:20 Urine Nitrite Negative (Negative) 12/21/16 23:20 Urine Bilirubin Negative (Negative) 12/21/16 23:20 Urine Urobilinogen Normal mg/dL (Normal) 12/21/16 23:20 Ur Leukocyte Esterase Small (Negative) H 12/21/16 23:20 Urine Microscopic RBC 15-30 per hpf (0-3) H 12/21/16 23:20 Urine Microscopic WBC 5-15 per hpf (0-3) H 12/21/16 23:20 Ur Squamous Epith Cells Many per lpf (None-Few) H 12/21/16 23:20 Urine Bacteria None Seen per hpf (None-Few) 12/21/16 23:20 Hyaline Casts None Seen per lpf (None-Few) 12/21/16 23:20 Urine Yeast Test Not Performed 12/21/16 23:20 Blood Type A POSITIVE 12/21/16 18:09 Antibody Screen NEGATIVE 12/21/16 18:09 Crossmatch See Detail 12/21/16 18:09 Radiographic studies: Abdomen MRI 12/22/16 09:27 IMPRESSION: 1. A 7.7 x 7.6 x 11.2 cm right renal neoplasm with extension into the renal sinus and pelvis and abuts the liver as well as the diaphragm. The right renal vein is not well-visualized but likely involved. No definite IVC thrombus is identified; however, the IVC is markedly attenuated due to mass effect. 2. Metastatic retroperitoneal adenopathy. D/ / 12/22/2016 14:48:53 Alisson Edmonds MD / roscoe Interpreting Provider: Alisson Edmonds MD Chest CT 12/22/16 12:21 IMPRESSION: 1. Multiple subcentimeter noncalcified bilateral pulmonary nodules suspicious for metastatic disease. 2. Trace bilateral pleural effusions. 3. Partially visualized is a right upper pole renal mass. Please refer to dedicated MRI of the abdomen for full details. D/ / 12/22/2016 13:47:04 Alisson Edmonds MD / roscoe Interpreting Provider: Alisson Edmonds MD I personally reviewed and interpreted patient's most recent imaging studies dated 12/22/16. I discussed the findings with the patient today. Impression/recommendations: Suspected metastatic kidney cancer: I had a detailed discussion with the patient and family members present today regarding the diagnostic considerations for current presentation and her most recent imaging studies and informed them that overall presentation is clinically and radiographically compatible with metastatic kidney cancer based on retroperitoneal nodes. I am not sure if we can definitively conclude about subcentimeter bilateral lung nodules. We reviewed the natural history of advanced kidney cancer and discussed NCCN guidelines for management. Patient and family understands that she likely has an incurable malignancy. She will likely be an appropriate candidate for one of several tolerable systemic therapy options including oral TKIs versus parenteral mTOR inhibitors versus immunotherapy despite her advanced age and comorbidities. Treatment has the potential for disease control and possible survival prolongation. We also discussed nonaggressive, supportive only measures for treatment such as palliative care/hospice which are not unreasonable given the incurable nature of her malignancy. If she decides to proceed with antineoplastic therapy, I will recommend biopsy of the most accessible lesion (possibly retroperitoneal nodes) for confirmation since histology of her kidney cancer will influence treatment selection. She is leaning towards antineoplastic therapy at this time and we will for tissue confirmation in the near future and also review her case in our multidisciplinary tumor conference. Patient and family understand the biopsy likely has to wait till the coming week since is not urgent at this time. We will arrange to see in the office for further discussion and treatment planning. Intermittent hematuria:Due to bleeding kidney cancer. Appreciated Dr. Lorenzo's input and I agree with the impression that patient is probably not an ideal candidate for palliative nephrectomy given her advanced age and comorbidities. Angioembolization of the kidney is reasonable for bleeding control if needed. Other consideration would be palliative radiotherapy if vascular technique is ineffective or not considered feasible by IR. Anemia due to blood loss: She is now status post 2 units PRBC on most recent CBC shows commenced with improvement in her hemoglobin. We will complete an anemia workup to look for additional hematinic deficiencies that may be contributing to her anemia. She may need iron supplementation due to blood loss and if needed, will give her IV iron as an outpatient to facilitate bone marrow recovery. We'll follow the patient along side you during this hospitalization but please do not hesitate to call regarding interval hematologic questions as they arise. Thank you for your excellent ongoing care for allowing us to see [default value ] while in-house. This report was created using voice recognition software and may contain errors. It was signed but not edited to expedite communication. Corrections will be made in a separate addendum as needed. Past Med Surg Social Fam HX - Past Medical History Medical history: cancer, diabetes, hypertension Psychiatric history: no psych history - Past Surgical History Surgical History: appendectomy - Social History Smoking Status: Never smoker Smokeless Tobacco Status: No Alcohol use: none Drug use: none - Family History Father Age at : 93 Cause of : heart attack Hx Family Cardiac Disorders: Yes Hx Family Respiratory Disorders: No Hx Family Cancer: No Hx Family GI Disorders: No Hx Family Genitourinary Disorders: No Hx Family Endocrine Disorder: Yes Hx Family Musculoskeletal Disorders: No Hx Family Neuromuscular Disorders: Yes Hx Family Neurologic Disorders: No Hx Family HEENT Disorders: No Hx Family Autoimmune Disorders: No Hx Family Reproductive Disorders: No Hx Family Psychosocial Disorders: No Hx Family Medical Disorders: No Mother Living Status: Age at : 86 Cause of : CVA Medications and Allergies Atenolol [Tenormin] 50 mg PO DAILY 12/21/16 [History] Cetirizine HCl [Cetirizine HCl] 10 mg PO DAILY 12/21/16 [History] Fenofibrate Nanocrystallized [Triglide] 160 mg PO DAILY 12/21/16 [History] Fluticasone Propionate Nasal [Flonase] 50 mcg NS DAILY 12/21/16 [History] Losartan/Hydrochlorothiazide [Hyzaar 100-25 Tablet] 1 each PO DAILY 12/21/16 [ History] Potassium Chloride [K-Tab ER] 20 meq PO DAILY 12/21/16 [History] Rosuvastatin Calcium [Rosuvastatin Calcium] 20 mg PO HS 12/21/16 [History] Allergies hydrochlorothiazide [From Maxzide] Allergy (Verified 12/21/16 13:47) See Comments Unsure of reaction. Triamterene [From Maxzide] Allergy (Verified 12/21/16 13:47) See Comments Unsure of reaction. Oncology - Exam - Constitutional Vitals: Temp Pulse Resp BP Pulse Ox 97.9 F 71 15 133/71 96 12/22/16 19:14 12/22/16 19:14 12/22/16 19:14 12/22/16 19:14 12/22/16 19:14 Oncology - Results - Labs Labs: Short CBC 12/22/16 Range/Units 05:08 WBC 5.2 (4.3-11.1) K/mcL Hgb 10.5 L D (11.5-15.4) g/dL Hct 33.4 L (35.3-44.9) % Plt Count 471 H (140-400) K/mcL Neutrophils # 3.7 (1.6-8.9) K/mcL BMP 12/22/16 05:08 Sodium 138 Potassium 3.9 Chloride 101 Carbon Dioxide 28 BUN 23 H Creatinine 1.27 H Glucose 96 Calcium 10.1 Urine 12/21/16 Range/Units 23:20 Urine Color Yellow (Yellow) Urine Clarity Cloudy A (Clear) Urine pH 6.5 (5.0-8.0) pH Units Ur Specific Norman 1.008 L (1.010-1.025) Urine Protein 30 H (Neg-Trace) mg/dL Urine Glucose (UA) Normal (Normal) mg/dL Consult Discharge Plan - Plan Referrals: Nick Olmos MD [Primary Care Provider] -
[2016-12-23 08:46] LABS: Basophils % 0.4 %; Eosinophils # 0.3 K/mcL (0.0-0.6); Eosinophils % 3.9 %; Hematocrit 37.8 % (35.3-44.9); Hemoglobin 11.5 g/dL (11.5-15.4); Immature Granulocytes % 0.3 % (0-4); Immature Platelets 2.7 % (1.1-6.1); Lymphocytes # 0.8 K/mcL (0.6-4.6); Lymphocytes % 10.6 %; Mean Corpuscular HGB Conc 30.4 g/dL (31.6-35.5); Mean Corpuscular Hemoglobin 24.3 pg (28.0-33.3); Mean Corpuscular Volume 79.9 fL (83.0-100.0); Mean Platelet Volume 9.4 fL (9.4-12.4); Monocytes # 0.5 K/mcL (0.0-1.3); Platelet Count 415 K/mcL (140-400); Red Blood Count 4.73 M/mcL (3.82-4.97); Red Cell Distribution Width 15.8 % (11.5-14.5); Segmented Neutrophils % 77.8 %
[2016-12-23 08:59] LABS: BUN/Creatinine Ratio 18 (6-26); Blood Urea Nitrogen 19 mg/dL (7-20); Calcium 9.8 mg/dL (8.6-10.8); Carbon Dioxide 22 mEq/L (19-29); Chloride 106 mEq/L (98-109); Glucose 113 mg/dL (70-99); Osmolality,Calculated 291 (280-300); Potassium 3.6 mEq/L (3.5-4.5); Sodium 139 mEq/L (136-145); eGFR For African Americans > 60 (> 60); eGFR For Non-African Americans 52 (> 60)
[2016-12-23 09:30] LABS: Neutrophils # 5.5 K/mcL (1.6-8.9)
[2016-12-23 09:33] LABS: Platelet Estimate Normal (Normal)
[2016-12-23] MEDS: Loratadine 10 MG TABLET PO SCH (09:36)
[2016-12-23] MEDS: 0.9 % Sodium Chloride 1,000 ML IVC SCH (09:38)
--- NOTE | 2016-12-23 09:55 | Urology Progress Note ---
Date of Encounter: 12/23/16 Time of Encounter: 09:53 - Assessment and Plan (1) Hematuria Current Visit: Yes Status: Acute Assessment and plan: Urine seems to be clearing. Will observe. (2) Renal cell carcinoma of right kidney Current Visit: Yes Status: Acute Assessment and plan: Appreciate medical oncology consultation. will sign off for now. If bleeding worsens, please call. I would then consider angioembolization of the kidney. She can follow up with Dr. Miguel as an outpatient. (3) Ureteral obstruction, right Current Visit: Yes Status: Acute Progress Note Narrative: Doing well today. Urine has been clear. MRI reviewed. Large right renal mass with retroperitoneal lymphadenopathy. No evidence of IVC invasion. Chest CT shows multiple chest nodules. Objective Initial Vital Signs Temp Pulse Resp BP Pulse Ox 98.1 F 75 15 112/62 96 12/21/16 13:47 12/21/16 13:47 12/21/16 13:47 12/21/16 13:47 12/21/16 13:47 - General physical appearance Present: well developed, well nourished, no distress - Respiratory Present: normal respiratory effort - Abdomen Present: soft - Labs 12/23/16 08:36 12/23/16 08:36 Diabetes panel 12/23/16 Range/Units 08:36 Sodium 139 (136-145) mEq/L Potassium 3.6 (3.5-4.5) mEq/L Chloride 106 (98-109) mEq/L Carbon Dioxide 22 (19-29) mEq/L BUN 19 (7-20) mg/dL Creatinine 1.03 (0.57-1.11) mg/dL Glucose 113 H (70-99) mg/dL Calcium 9.8 (8.6-10.8) mg/dL Calcium panel 12/23/16 Range/Units 08:36 Calcium 9.8 (8.6-10.8) mg/dL Pituitary panel 12/23/16 Range/Units 08:36 Sodium 139 (136-145) mEq/L Potassium 3.6 (3.5-4.5) mEq/L Chloride 106 (98-109) mEq/L Carbon Dioxide 22 (19-29) mEq/L BUN 19 (7-20) mg/dL Creatinine 1.03 (0.57-1.11) mg/dL Glucose 113 H (70-99) mg/dL Calcium 9.8 (8.6-10.8) mg/dL Adrenal panel 12/23/16 Range/Units 08:36 Sodium 139 (136-145) mEq/L Potassium 3.6 (3.5-4.5) mEq/L Chloride 106 (98-109) mEq/L Carbon Dioxide 22 (19-29) mEq/L BUN 19 (7-20) mg/dL Creatinine 1.03 (0.57-1.11) mg/dL Glucose 113 H (70-99) mg/dL Calcium 9.8 (8.6-10.8) mg/dL Consult Discharge Plan - Plan Referrals: Nick Olmos MD [Primary Care Provider] -
--- NOTE | 2016-12-23 11:24 | Discharge Summary ---
Date of Encounter: 12/23/16 Time of Encounter: 11:22 - Discharge Diagnosis (1) Renal cell carcinoma of right kidney Priority: Primary Status: Acute (2) Ureteral obstruction, right Priority: Primary Status: Acute (3) Anemia Priority: Primary Status: Acute Qualifiers: Anemia type: iron deficiency Iron deficiency anemia type: chronic blood loss Qualified Code(s): D50.0 - Iron deficiency anemia secondary to blood loss (chronic) (4) Hematuria Priority: Primary Status: Acute (5) Hypertension Priority: Secondary Status: Chronic Qualifiers: Hypertension type: essential hypertension Qualified Code(s): I10 - Essential (primary) hypertension (6) Type 2 diabetes mellitus Priority: Secondary Status: Chronic Qualifiers: Diabetes mellitus complication status: without complication Diabetes mellitus dedicated intermodal truck driver insulin use: without dedicated intermodal truck driver use Qualified Code(s): E11.9 - Type 2 diabetes mellitus without complications - Discharge Medications Home Medications: Atenolol [Tenormin] 50 mg PO DAILY 12/21/16 [History] Cetirizine HCl 10 mg PO DAILY 12/21/16 [History] Fenofibrate Nanocrystallized [Triglide] 160 mg PO DAILY 12/21/16 [History] Fluticasone Propionate Nasal [Flonase] 50 mcg NS DAILY 12/21/16 [History] Losartan/Hydrochlorothiazide [Hyzaar 100-25 Tablet] 1 each PO DAILY 12/21/16 [ History] Potassium Chloride [K-Tab ER] 20 meq PO DAILY 12/21/16 [History] Rosuvastatin Calcium 20 mg PO HS 12/21/16 [History] Allergies/Adverse Reactions: Allergies hydrochlorothiazide [From Maxzide] Allergy (Verified 12/21/16 13:47) See Comments Unsure of reaction. Triamterene [From Maxzide] Allergy (Verified 12/21/16 13:47) See Comments Unsure of reaction. Procedures/tests Complete & Pending: Procedures Performed prior 72 hours Category Date Time Status CT chest wo con [CT] Stat Cat Scan 12/22/16 12:21 Draft MR abdomen wo/w con [MR] Stat MRI 12/22/16 09:27 Draft Date of admission: 12/21/16 16:46 Primary care physician: Nick Monge Consults: 12/21/16 18:16 Consult to Urology [CONS] Routine Consulting Provider: [facility] [place] Reason for Consult: RCC with blood clots in right renal collecting sysem and right ureter. Call Completed: Yes 12/22/16 12:19 Consult to Oncology Hematology [CONS] Routine Consulting Provider: Michael Lopez Jr Reason for Consult: please evaluate for renal cell cancer with possible lung mets. Call Completed: Yes Discharging clinician: Arielle White Anticipated date of discharge: 12/23/16 - Patient Status Disposition: Home, Self-Care Condition: Fair Functional capacity at discharge: independent ambulation Overall status at discharge: patient is back to baseline - Discharge Instructions Follow Up With: Nick Olmos MD [Primary Care Provider] - Charles Miguel MD [Partnered Physician] - - Diet and Activity Activity: resume usual activities as tolerated Diet: advance to your usual diet Interval History: Ms. Aparicio is a 81 year old female with hypertension, diabetes, history of breast cancer status post radiation 14 years ago presents to the emergency department today on the instruction of her urologist Dr. Miguel. She has noted intermittent bleeding for a couple days. She was seen at the [place] emergency department. A CT scan showed concern for a right renal mass with concern for metastatic disease. There was blood clot within the collecting system. She was seen at the [facility] urology office in [place] by Dr. Miguel. He referred her to the emergency department and she was admitted. Urology and oncology was consulted, she was anemic at presentaton, s/p 2 units of BT. she reports no further bleeding in the urine and her h/h remained stable. patient is probably not an ideal candidate for palliative nephrectomy given her advanced age and comorbidities as per urology. Angioembolization of the kidney is reasonable for bleeding control if needed. [facility] will follow up with oncology in the coming week to plan biopsy of the renal mass and start treatment will also given f/u with dr. Miguel for hematuira. kat[place] is being dc today in stable condition and was advised to come to ED should the hematuria recur. Hospital course: Ms. Aparicio is a 81 year old female Time spent discussing smoking cessation with patient: more than 10 minutes - Time Spent with Patient Total time spent providing and/or coordinating discharge services: Greater than 30 minutes - Constitutional Vitals: Temp Pulse Resp BP Pulse Ox 98.3 F 69 16 152/75 94 12/23/16 07:38 06/03/17 07:38 12/23/16 07:38 12/23/16 07:38 12/23/16 07:38 General appearance: Present: A&O X 3, pleasant, no acute distress Exam: - Head Head exam: Present: atraumatic, normocephalic - Eye Eye exam: Present: PERRL, conjuntiva pink, sclera anicteric Pupils: Present: PERRL - Neck Neck exam general surgery: Present: supple, trachea midline. Absent: lymphadenopathy - Respiratory Respiratory exam: Present: CTAB. Absent: accessory muscle use, rales, rhonchi, wheezes - Cardiovascular Cardiovascular exam: Present: RRR, +S1, +S2. Absent: diastolic murmur, gallop, rubs, systolic murmur - GI/Abdominal GI/Abdominal exam: Present:mildly distended, normal bowel sounds, soft, no tenderness, no peritoneal signs - Extremities Exam Extremities exam: Present: warm, radial pulses palpable and symetrical. Absent : calf tenderness, cyanotic, pedal edema - Neurological Exam Neurological exam: Present: CN II-XII intact, oriented X3, no focal deficits. Absent: facial droop, speech deficit - Skin Skin exam: Present: dry, intact - VTE Documentation of Mechanical Device: Intermittent pneumatic compression device
[2016-12-23 11:38] VITALS: BP 144/83
== END 2016-12-23 12:30 | disposition home or self-care (01) | DRG 687 ==
LOC: 3ANU 13:43 → EMEROO 13:43 → 3ANU 17:50
PROVIDERS: ADMIT Nurse Practitioner Family; ATTEND Internal Medicine Endocrinology, Diabetes & Metabolism